=== PATIENT | female | born 1965 | race Caucasian/White ===

== ENCOUNTER 2016-04-05 17:40 | Emergency (ER) | payer OTHER ==
[~2016-04-05] VITALS: Ht 154.9 cm; Wt 81.6 kg
[~2016-04-05 17:40] MED LIST: FLEXERIL10 MG PO; MOTRIN800 MG PO; PERCOCET 325 MG1 TA2 PO; PROAIR HFA0.09 MG/Ac INH
[2016-04-05 19:06] LABS: ABSOLUTE BASOPHIL COUNT 0 /CUMM (0.0-0.2); ABSOLUTE EOSINOPHIL COUNT 0.3 /CUMM (0.0-0.7); ABSOLUTE GRANULOCYTE CT 3.6 /CUMM (1.4-6.5); ABSOLUTE LYMPH COUNT 2.9 /CUMM (1.2-3.4); ABSOLUTE MONOCYTE COUNT 0.6 /CUMM (0.10-0.60); BASOPHIL % 0.7 % (0.0-2.0); EOSINOPHIL % 4.3 % (0-5); GRANULOCYTE % 48.1 % (42.2-75.2); HEMATOCRIT 40.7 % (37-47); MEAN CORPUSCULAR HGB 29.2 PG (27.0-31.0); MEAN CORPUSCULAR HGB CONC 33.9 G/DL (33.0-37.0); MEAN CORPUSCULAR VOLUME 86.3 FL (81.0-99.0); MEAN PLATELET VOLUME 7.6 FL (7.4-10.4); PLATELET COUNT 332 /CUMM (130-400); RBC DISTRIBUTION WIDTH 12.9 % (11.5-14.5); RED BLOOD CELL CT 4.72 /CUMM (4.20-5.40); WHITE BLOOD CELL COUNT 7.4 /CUMM (4.8-10.8)
[2016-04-05] MEDS ORDERED: MONTELUKAST SOD10 M1 PO (19:23)
[2016-04-05] MEDS ORDERED: VITAMIN D2000 UNIT PO (19:24)
[2016-04-05] MEDS ORDERED: NASONEX17 GM NASB (19:24)
[2016-04-05] MEDS ORDERED: BROMPHENIR-PSE118 ML (19:24)
[2016-04-05 20:06] VITALS: BP 124/58
--- NOTE | 2016-04-05 20:16 | CT SCAN REPORT ---
EXAMINATION: CT ABDOMEN AND PELVIS WITH CONTRAST CLINICAL INFORMATION: Abdominal pain. Epigastric abdominal pain. COMPARISON: CT abdomen without contrast 04/01/2012. TECHNIQUE: Multidetector volumetric imaging was performed of the abdomen and pelvis before and after the IV administration of 95 mL of Optiray 320 intravenous contrast. Sagittal and coronal reformatted images were obtained on the technologist's workstation. DLP: 289 mGy-cm FINDINGS: LUNG BASES: The visualized lung bases are unremarkable. LIVER, GALLBLADDER, AND BILIARY TREE: The liver is normal in size, shape, and attenuation. No focal hepatic lesion or intrahepatic biliary ductal dilatation is present. The gallbladder is surgically absent. There is mild prominence of the distal common bile duct, not unexpected following cholecystectomy. No radiopaque intraductal stones are identified. PANCREAS: Unremarkable. SPLEEN: Unremarkable. ADRENAL GLANDS: Unremarkable. KIDNEYS AND URETERS: Evaluation of the bilateral kidneys and renal collecting systems is notable for a 1.1 cm nonobstructing stone within the lower pole of the left kidney, new relative to a prior CT of the abdomen and pelvis dating back to 04/01/2012. A 0.5 cm nonobstructing stone, previously visualized within the upper pole of the left kidney is no longer identified. On today's exam, there is a 0.4 cm nonobstructing stone within the upper pole of the left kidney. There is no appreciable nephrolithiasis of the right kidney. No ureteral stones are identified and there is no hydroureteronephrosis of either kidney or renal collecting system. Evaluation of the renal parenchyma demonstrates a 0.6 cm hypoattenuating structure within the midpole of the right kidney. This finding is incompletely characterized on this examination but could reflect a small renal cyst. BLADDER: Unremarkable. GASTROINTESTINAL TRACT: Evaluation of the gastrointestinal system is notable for a small bowel feces sign, with feculent material identified within loops of small bowel, notably the jejunum and ileum. Abdominal and pelvic bowel loops are otherwise normal in caliber, without findings indicative of small bowel obstruction. A normal-appearing appendix is present within the right lower quadrant of the abdomen. No organizing intra-abdominal or pelvic fluid collections are identified and there is no free intraperitoneal air. ABDOMINAL WALL: No significant hernia is appreciated. LYMPH NODES: No significant abdominal or pelvic adenopathy. VASCULAR: Patent abdominal vasculature. Normal course and caliber of the abdominal aorta and its branching vessels, without aneurysmal dilatation. PELVIC VISCERA: Unremarkable. OSSEOUS STRUCTURES: No acute osseous abnormality. Normal alignment of the imaged thoracolumbar spine. No visible destructive osseous lesions. IMPRESSION: 1. Small bowel feces sign, with feculent material identified within loops of small bowel, notably the jejunum and ileum. This finding is entirely nonspecific but can be seen in the setting of delayed intestinal transit. There is focal distention of a loop of small bowel within the left upper quadrant of the abdomen, which is visualized measuring up to 3 cm in diameter. There are otherwise, no findings indicative of small bowel obstruction. 2. Nephrolithiasis of the left kidney with a 1.1 cm nonobstructing stone identified within the lower pole of the left kidney. There is an additional nonobstructing stone within the upper pole of the left kidney measuring 0.4 cm. There is no appreciable nephrolithiasis of the right kidney. No ureteral stones are identified and there is no hydroureteronephrosis of either kidney or renal collecting system.
[2016-04-05] MEDS ORDERED: OMEPRAZOLE40 M1 PO (20:56)
[2016-04-05] MEDS ORDERED: PERCOCET 5-3251 EACH PO (20:56)
--- NOTE | 2016-04-05 20:57 | ED GI/GU/ABDOMINAL COMPLAINT ---
History of Present Illness General Chief Complaint: Abdominal Pain/Flank Pain Stated Complaint: MID EPIGASTRIC PAIN Source: patient Exam Limitations: no limitations Vital Signs & Intake/Output Vital Signs & Intake/Output Vital Signs Date Time Temp Pulse Resp B/P Pulse O2 O2 Flow FiO2 Ox Delivery Rate 04/05 2005 92 18 124/58 95 Room Air 04/05 1811 98.3 98 16 122/82 100 Room Air Allergies Coded Allergies: venom-honey bee (BEE VENOM (HONEY BEE)) (Severe, ANAPHYLAXIS 04/15/15) Triage Note: PT TO ED FOR SEVERE EPIGASTRIC ABD PAIN SINCE THIS AM, +NAUSEA, +VOMITING, POOR PO INTAKE FOR PAST DAY WELL. Triage Nurses Notes Reviewed? yes ? n Is pt currently ? No Onset: Abrupt Duration: hour(s):, constant, continues in ED Timing: recent history Quality/Severity: moderate, sharpness, severe Location: epigastric Radiation: no radiation No Modifying Factors: none HPI: 51-year-old female comes into emergency room with complaints of upper abdominal pain since this morning. Some associated nausea and 1 episode of vomiting. Decreased appetite. Denies any chest pain or shortness of breath currently. Pain is nonradiating. Denies any prior history of abdominal issues. History of cholecystectomy. Nothing seems to make the symptoms better. Eating seems to exacerbate the symptoms. decrease in bowel movements today. Denies any blood in her stool. Denies any other associated symptoms currently. (ELIE MARIE) Reconcile Medications Brompheniramine/Pseudoephed/Dm (Akyfvponuv-Ehxlmqwzmaj-Lw Syr) (Unknown Strength ) SYRUP (Unknown Dose) UNKNOWN (Reported) Cholecalciferol (Vitamin D3) (Vitamin D) 2,000 UNIT CAPSULE 1 CAP PO DAILY SUPPLEMENT (Reported) Mometasone Furoate (Nasonex) 50 MCG SPRAY.PUMP 1 SPRAY NASB BID PRN ALLERGIES (Reported) Montelukast Sodium 10 MG TABLET 1 TAB PO QHS ALLERGIES (Reported) Omeprazole 40 MG CAPSULE.DR 1 CAP PO DAILY ABD PAIN Ondansetron (Zofran Odt) 4 MG TAB.RAPDIS 1 TAB SL TID PRN NAUSEA Oxycodone HCl/Acetaminophen (Percocet 5-325 MG Tablet) 5 MG-325 MG TABLET 1-2 TAB PO Q6P PRN PAIN (DERECK CHAN) Past History Travel History Traveled to [place] past 21 day No Medical History Any Pertinent Medical History? see below for history Neurological: NONE EENT: NONE Cardiovascular: NONE Respiratory: asthma Gastrointestinal: NONE Hepatic: NONE Renal: NONE Musculoskeletal: NONE Psychiatric: NONE Endocrine: NONE Blood Disorders: NONE Cancer(s): NONE Surgical History Surgical History: cholecystectomy Psychosocial History What is your primary language Qatari Tobacco Use: Current Daily Use Daily Tobacco Use Amount/Type: => 5 Cigarettes daily ETOH Use: occasional use Illicit Drug Use: denies illicit drug use Family History Hx Contributory? No (ELIE MARIE) Review of Systems Review of Systems Constitutional: Reports: no symptoms. EENTM: Reports: no symptoms. Respiratory: Reports: no symptoms. Cardiovascular: Reports: no symptoms. GI: Reports: see HPI. Genitourinary: Reports: no symptoms. Musculoskeletal: Reports: no symptoms. Skin: Reports: no symptoms. Neurological/Psychological: Reports: no symptoms. Hematologic/Endocrine: Reports: no symptoms. Immunologic/Allergic: Reports: no symptoms. All Other Systems: Reviewed and Negative (ELIE MARIE) Physical Exam Physical Exam General Appearance: well developed/nourished, no apparent distress, alert, awake Head: atraumatic, normal appearance Eyes: Bilateral: normal appearance. Ears, Nose, Throat, Mouth: hearing grossly normal, moist mucous membrane Neck: normal inspection, full range of motion Respiratory: normal breath sounds, no respiratory distress Cardiovascular: regular rate/rhythm Gastrointestinal: soft, tenderness (epigastric), no guarding, no rebound tenderness Back: normal inspection Extremities: normal range of motion Neurologic/Psych: awake, alert, oriented x 3, normal gait, normal mood/affect Skin: intact, normal color Core Measures ACS in differential dx? Yes Severe Sepsis Present: No Septic Shock Present: No (ELIE MARIE) Progress Differential Diagnosis: AAA, AMI, appendicitis, biliary colic, bowel obstruction , cholecystitis, diverticulitis, esophageal varices, gastritis, hepatitis, hernia, kidney stone, ovarian cyst, ovarian torsion, pancreatitis, PID/ cervicitis, peptic ulcer, PUD/GERD, perforated viscous, SBO, threatened AB, UTI/ pyelo Plan of Care: Orders Procedure Date/time Status TROPONIN LEVEL 04/05 1812 Complete URINALYSIS 04/05 1809 Complete LIPASE 02/20 1810 Complete COMPREHENSIVE METABOLIC PANEL 04/05 1809 Complete CBC WITHOUT DIFFERENTIAL 04/05 1809 Complete AMYLASE 04/05 1809 Complete EKG 04/05 1809 Active Laboratory Tests 04/05/161929: Urine Color YEL, Urine Clarity HAZY H, Urine pH 6.0, Ur Specific [place] 1.025, Urine Protein TRACE H, Urine Ketones 15 H, Urine Nitrite NEG, Urine Bilirubin NEG, Urine Urobilinogen 0.2, Ur Leukocyte Esterase TRACE H, Ur Microscopic SEDIMENT EXAMINED, Urine RBC >75 H, Urine WBC 3-5 H, Ur Epithelial Cells MANY H, Hyaline Casts RARE H, Urine Mucus MANY H, Urine Hemoglobin LARGE H, Urine Glucose NEG 04/05/161830: Troponin I Cancelled 04/05/161812: Anion Gap 10, Estimated GFR 59 L, BUN/Creatinine Ratio 18.0, Glucose 97, Calcium 9.5, Total Bilirubin 0.5, AST 19, ALT 40, Alkaline Phosphatase 89, Troponin I < 0.01, Total Protein 7.2, Albumin 4.1, Globulin 3.1, Albumin/ Globulin Ratio 1.3, Amylase < 30 L, Lipase 35, CBC w Diff NO MAN DIFF REQ, RBC 4.72, MCV 86.3, MCH 29.2, RDW 12.9, MPV 7.6, Gran % 48.1, Lymphocytes % 38.6, Monocytes % 8.3, Eosinophils % 4.3, Basophils % 0.7, Absolute Granulocytes 3.6, Absolute Lymphocytes 2.9, Absolute Monocytes 0.6, Absolute Eosinophils 0.3, Absolute Basophils 0, PUBS MCHC 33.9 04/05/2016 11:25:03 PM I spoke with the patient over the phone after she called requesting a medication for nausea. The patient states that she attempted to eat and immediately began to vomit. She has not taken anything for her pain and she has not gotten the Percocet or omeprazole that was previously prescribed to her earlier today. Discussed her that she should get these filled, prescription for Zofran was called into her pharmacy at her request. I went over again all her CAT scan and lab results with her, and I stressed to her that she should come back to the emergency room to be evaluated once again. The patient states that she will try this first and if they persist she will come back. (DERECK CHAN) Diagnostic Imaging: Viewed by Me: CT Scan. Discussed w/RAD: CT Scan. Radiology Impression: SERVICE DATE: 04/05/16 EXAM TYPE: CAT - CT ABD & PELVIS W IV CONTRAST EXAMINATION: CT ABDOMEN AND PELVIS WITH CONTRAST CLINICAL INFORMATION: Abdominal pain. Epigastric abdominal pain. COMPARISON: CT abdomen without contrast 04/01/2012. TECHNIQUE: Multidetector volumetric imaging was performed of the abdomen and pelvis before and after the IV administration of 95 mL of Optiray 320 intravenous contrast. Sagittal and coronal reformatted images were obtained on the technologist's workstation. DLP: 289 mGy-cm FINDINGS: LUNG BASES: The visualized lung bases are unremarkable. LIVER, GALLBLADDER, AND BILIARY TREE: The liver is normal in size, shape, and attenuation. No focal hepatic lesion or intrahepatic biliary ductal dilatation is present. The gallbladder is surgically absent. There is mild prominence of the distal common bile duct, not unexpected following cholecystectomy. No radiopaque intraductal stones are identified. PANCREAS: Unremarkable. SPLEEN: Unremarkable. ADRENAL GLANDS: Unremarkable. KIDNEYS AND URETERS: Evaluation of the bilateral kidneys and renal collecting systems is notable for a 1.1 cm nonobstructing stone within the lower pole of the left kidney, new relative to a prior CT of the abdomen and pelvis dating back to 04/01/2012. A 0.5 cm nonobstructing stone, previously visualized within the upper pole of the left kidney is no longer identified. On today's exam, there is a 0.4 cm nonobstructing stone within the upper pole of the left kidney. There is no appreciable nephrolithiasis of the right kidney. No ureteral stones are identified and there is no hydroureteronephrosis of either kidney or renal collecting system. Evaluation of the renal parenchyma demonstrates a 0.6 cm hypoattenuating structure within the midpole of the right kidney. This finding is incompletely characterized on this examination but could reflect a small renal cyst. BLADDER: Unremarkable. GASTROINTESTINAL TRACT: Evaluation of the gastrointestinal system is notable for a small bowel feces sign, with feculent material identified within loops of small bowel, notably the jejunum and ileum. Abdominal and pelvic bowel loops are otherwise normal in caliber, without findings indicative of small bowel obstruction. A normal- appearing appendix is present within the right lower quadrant of the abdomen. No organizing intra-abdominal or pelvic fluid collections are identified and there is no free intraperitoneal air. ABDOMINAL WALL: No significant hernia is appreciated. LYMPH NODES: No significant abdominal or pelvic adenopathy. VASCULAR: Patent abdominal vasculature. Normal course and caliber of the abdominal aorta and its branching vessels, without aneurysmal dilatation. PELVIC VISCERA: Unremarkable. OSSEOUS STRUCTURES: No acute osseous abnormality. Normal alignment of the imaged thoracolumbar spine. No visible destructive osseous lesions. IMPRESSION: 1. Small bowel feces sign, with feculent material identified within loops of small bowel, notably the jejunum and ileum. This finding is entirely nonspecific but can be seen in the setting of delayed intestinal transit. There is focal distention of a loop of small bowel within the left upper quadrant of the abdomen, which is visualized measuring up to 3 cm in diameter. There are otherwise, no findings indicative of small bowel obstruction. 2. Nephrolithiasis of the left kidney with a 1.1 cm nonobstructing stone identified within the lower pole of the left kidney. There is an additional nonobstructing stone within the upper pole of the left kidney measuring 0.4 cm. There is no appreciable nephrolithiasis of the right kidney. No ureteral stones are identified and there is no hydroureteronephrosis of either kidney or renal collecting system. DICTATED BY: RUTH WYMAN MD DATE/ TIME DICTATED:04/05/161951 CONCAVER:ROSANNE DATE/TIME TRANSCRIBED: 04/05/161951 Initial ED EKG: normal intervals, normal p-waves, normal QRS complex, normal sinus rhythm, rate (82) (MARKUS BRADY,ELIE) Departure Departure Disposition: HOME OR SELF CARE Condition: Stable Clinical Impression Primary Impression: Abdominal pain Referrals: YESENIA LUIS,JULIA CURRAN APRN (PCP/Family) Additional Instructions: Take Percocet for pain. Follow-up with GI doctor. Take omeprazole as prescribed. Return if any other concerns worsening symptoms. Please go over all results of today's visit with your primary care doctor. Contact your primary care doctor to let them know you were here in the emergency room. There may be nonspecific findings which may not be related to your visit today here in the emergency room but may require further evaluation and chronic monitoring by your primary care doctor. If you had a laceration today the chance of foreign body always remains. You should follow-up with your primary care doctor for recheck in 3-5 days for a wound check. If you had an x-ray done there is a chance that a fracture could have been missed on initial read and you should follow-up with your primary care doctor for repeat x-rays if symptoms persist. If your blood pressure was elevated here in the emergency room please have rechecked by her primary care doctor within the next 48 hours by your primary care doctor. If you were prescribed a narcotic here in the emergency room or any type of controlled substances you're not allowed to drive while taking this medication or operate any type of heavy machinery. Narcotics can make you feel lightheaded dizziness nausea and can cause constipation. You may need to greens picker a stool softener. Thank you for choosing [facility] emergency room. Please return to the emergency room immediately if you have any other concerns worsening of symptoms. Departure Forms: Customer Survey General Discharge Information Comments Patient clinically looks well. Nontoxic-appearing. No acute abdomen on exam. Feels better after IV medications. Patient was referred to gastroenterology for upper endoscopy and possibly a gastric emptying study. She does not appear to be in any distress on exam. Pain is consistent with abdominal pain versus chest pain. EKG within normal limits and a normal troponin. (ELIE MARIE) Departure Prescriptions: Current Visit Scripts Oxycodone HCl/Acetaminophen (Percocet 5-325 MG Tablet) 1-2 TAB PO Q6P PRN PAIN #15 TAB Omeprazole 1 CAP PO DAILY #30 CAP Ondansetron (Zofran Odt) 1 TAB SL TID PRN NAUSEA #10 TAB (DERECK CHAN)
[2016-04-05] MEDS ORDERED: ZOFRAN ODT4 M1 SL (23:24)
== END 2016-04-05 21:11 ==
LOC: ERH 17:40
PROVIDERS: Emergency Medicine
DX: R10.13 Epigastric pain (principal)
CPT/HCPCS: 74177; 81001; 93005; 93010; 96374; 96375; J2405

== ENCOUNTER → 2016-05-14 | Day surgery (SDC) | payer OTHER ==
[~2016-05-14] VITALS: Ht 154.9 cm; Wt 81.6 kg
[~2016-05-14] MED LIST changes: +BACITRACIN3.5 GM OD; +BROMPHENIR-PSE118 ML; +CIPRO500 M1 PO; +DILAUDID2 M1 PO; +FLUTICASONE PRO16 GM NASB; +KEFLEX500 M1 PO; +MONTELUKAST SOD10 M1 PO; +NASONEX17 GM NASB; +OMEPRAZOLE40 M1 PO; +OXYCODONE-ACET1 EACH PO; +PERCOCET 5-3251 EACH PO; +SIMBRINZA 1%-0.28 ML OD; +TRIMETHOBENZAM300 MG PO; +VITAMIN D2000 UNIT PO; +ZOFRAN ODT4 M1 SL
--- NOTE | 2016-05-14 15:13 | Operative Report ---
Operative/Inv Procedure Report Surgery Date: 05/14/16 Name of Procedure: left ureteroscopy with laserlithotripsy and stent placement wtih stones removal and retrograde pyelogram Pre-Operative Diagnosis: left renal stones Post-Operative Diagnosis: same Estimated Blood Loss: less than 50ml Surgeon/Water Pollution Control Technician: AFRICA BOLANOS MD Anesthesia: laryngeal mask airway Implants: stent Drains: stent 6x22cm stent Specimens: stones Complications: none Condition: stable Operative Indication: left renal stones with renal colic Operative/Procedure Note Note: Operative dictation on patient Sarah Cantu. She was identified in the holding area and consented for a left ureteroscopy with laser lithotripsy with stone extraction and retrograde pyelogram and stent placement. Risks benefits and alternatives of the surgery were given and all questions were answered. Patient was taken to the operating room placed on the operating table in supine position. Once timeout was performed SCDs were placed bilaterally. IV antibiotics were infused and LMA anesthesia was given. She was prepped and draped in the standard sterile fashion in dorsal lithotomy position. cystoscopy was performed and the bladder was globally inspected. The bladder was normal without any lesions masses or trabeculation. Ureteral orifices in their normal anatomical position. The left ureteral orifice was cannulated with a sensor guidewire followed by her superstiff using the Coloplast ureteral access sheath. 35 cm ureteral access sheath was used. The flexible ureteroscope was placed up into the renal pelvis and prior to doing so a prescription was performed to delineate the renal anatomy. The stone was known to be in the lower pole 1.1 cm in size and this was attempted to be placed in the upper pole but it was a unable to be done. The upper pole stone was first lasered with the 400 fiber into smaller sizes. The lower pole was attempted to be fragmented with the 400 Once this was done the 0 tip basket was then used and for multiple fragments were removed via the ureteral access sheath. These were sent off for stone analysis. Once all the large size stones were removed the area was completely inspected again. Fluoroscopy was used throughout the case. There were no remaining sizable stones. The ureteroscope was then removed along with the sheath in the ureter was examined on the way out. There were no injuries. The remaining wire was then used to place a 6 x 22 cm ureteral stent. This was done with the cystoscopy. The stent was seen to be in good position. She tolerated the procedure well. Findings: large LP stone 1.1cm in size brown in color. 4mm stone in the UP that was yellow in color. Discharge Disposition: PACU
--- NOTE | 2016-05-14 16:59 | RADIOLOGY REPORT ---
EXAMINATION: XR ABDOMEN CLINICAL INDICATION: Left ureteroscopy. Retrograde lithotripsy. COMPARISON: A scan of the abdomen and pelvis dated 04/05/2016. TECHNIQUE: Fluoroscopic equipment was dedicated to the operating room for the performance of a left ureteroscopy and retrograde lithotripsy. 24 images were obtained and are submitted for review. FLUOROSCOPY TIME: 37 seconds. FINDINGS: The images demonstrate different stages of advancement of the guidewire and stent. Final image demonstrates a left double-J ureteral stent in place with proximal and distal pigtails in region of the renal pelvis and ureter. No definite radiopaque calculi appreciated. IMPRESSION: Left ureteral stent placement.
== END ==
LOC: STS 04-30 07:00
DX: N20.0 Calculus of kidney (principal); E78.5 Hyperlipidemia, unspecified; J44.9 Chronic obstructive pulmonary disease, unspecified
CPT/HCPCS: 74000; 82355; C2617; J0131; J0690; J1100; J1885; J2250; J2405

== ENCOUNTER 2016-05-16 17:31 | Emergency (ER) | payer OTHER ==
[~2016-05-16] VITALS: Ht 154.9 cm; Wt 74.4 kg
[~2016-05-16 17:31] MED LIST changes: -BACITRACIN3.5 GM OD; -CIPRO500 M1 PO; -DILAUDID2 M1 PO; -FLUTICASONE PRO16 GM NASB; -KEFLEX500 M1 PO; -OXYCODONE-ACET1 EACH PO; -SIMBRINZA 1%-0.28 ML OD; -TRIMETHOBENZAM300 MG PO
[2016-05-16] MEDS ORDERED: OXYCODONE-ACET1 EACH PO (18:26)
[2016-05-16] MEDS ORDERED: KEFLEX500 M1 PO (18:26)
[2016-05-16] MEDS ORDERED: BACITRACIN3.5 GM OD (18:27)
[2016-05-16] MEDS ORDERED: FLUTICASONE PRO16 GM NASB (18:27)
[2016-05-16] MEDS ORDERED: TRIMETHOBENZAM300 MG PO (18:28)
[2016-05-16] MEDS ORDERED: SIMBRINZA 1%-0.28 ML OD (18:28)
[2016-05-16 18:56] LABS: ABSOLUTE BASOPHIL COUNT 0.1 /CUMM (0.0-0.2); ABSOLUTE EOSINOPHIL COUNT 0.2 /CUMM (0.0-0.7); ABSOLUTE GRANULOCYTE CT 6.9 /CUMM (1.4-6.5); ABSOLUTE LYMPH COUNT 3.1 /CUMM (1.2-3.4); ABSOLUTE MONOCYTE COUNT 0.7 /CUMM (0.10-0.60); BASOPHIL % 0.5 % (0.0-2.0); EOSINOPHIL % 1.7 % (0-5); GRANULOCYTE % 62.7 % (42.2-75.2); HEMATOCRIT 39.8 % (37-47); MEAN CORPUSCULAR HGB 28.7 PG (27.0-31.0); MEAN CORPUSCULAR HGB CONC 33.3 G/DL (33.0-37.0); MEAN CORPUSCULAR VOLUME 86.2 FL (81.0-99.0); MEAN PLATELET VOLUME 7.6 FL (7.4-10.4); PLATELET COUNT 339 /CUMM (130-400); RBC DISTRIBUTION WIDTH 13.4 % (11.5-14.5); RED BLOOD CELL CT 4.62 /CUMM (4.20-5.40)
--- NOTE | 2016-05-16 20:14 | ED GI/GU/ABDOMINAL COMPLAINT ---
History of Present Illness General Chief Complaint: Abdominal Pain/Flank Pain Stated Complaint: KIDNEY STONE SURGERY FRI, HAVING SEVERE PAIN Source: patient Exam Limitations: no limitations Allergies Coded Allergies: venom-honey bee (BEE VENOM (HONEY BEE)) (Severe, ANAPHYLAXIS 04/15/15) Triage Note: PT STATES SHE HAD KIDNEY STONE SURGERY WITH DR. CADENA ON TUESDAY AND TODAY SHE IS HAVING SEVERE LEFT SIDED FLANK PAIN. PT STATES TODAY SHE CAN'T GET A NORMAL FLOW OF URINE. Triage Nurses Notes Reviewed? yes ? N Is pt currently ? No HPI: This patient is a 51-year-old female who presented to the emergency department today for evaluation of right flank pain and right groin pain. This patient had a stent placed for ureterolithiasis on Tuesday by Dr. CADENA. She reported that Tuesday and Tuesday after the surgery she felt fine. However, on Tuesday she started to develop left flank pain and pain with urination. She reported that right now the pain is primarily in her right groin. The pain gets up to a 10 out of 10 when she urinates. The pain is sharp and stabbing. She reported noticing blood in her urine. She reported urgency and frequency. The patient denied any diarrhea or constipation. No abdominal pain. She did report nausea and vomiting once today. No fevers but she is reporting chills. She spoke to her urologist today who suggested that she come to the emergency department for imaging. (ISIDRO NAPIER,WINNIE) Vital Signs & Intake/Output Vital Signs & Intake/Output Vital Signs Date Time Temp Pulse Resp B/P Pulse O2 O2 Flow FiO2 Ox Delivery Rate 05/16 2111 98.0 83 16 117/66 98 Room Air 05/16 1849 Room Air 05/16 1734 97.5 120 16 107/74 96 Room Air ED Intake and Output 05/17 0000 05/16 1200 Intake Total 1000 Output Total Balance 1000 Intake, IV 1000 Patient 164 lb Weight Reconcile Medications Bacitracin 500 UNIT/GRAM OINT...G. 1 JAXSON OD Q8H RIGHT EYE (Reported) Brinzolamide/Brimonidine Tart (Simbrinza 1%-0.2% Eye Drops) 1 %-0.2 % DROPS.SUSP 1 DROP OD Q12H RIGHT EYE - GLAUCOMA (Reported) Cephalexin (Keflex) 500 MG CAPSULE 1 CAP PO Q8H ANTIBIOTIC (Reported) Cholecalciferol (Vitamin D3) (Vitamin D) 2,000 UNIT CAPSULE 1 CAP PO DAILY SUPPLEMENT (Reported) Ciprofloxacin HCl (Cipro) 500 MG TABLET 1 TAB PO BID UTI Fluticasone Propionate 50 MCG/ACTUATION SPRAY.SUSP 1 SPRAY NASB BID NASAL CONGESTION (Reported) Montelukast Sodium 10 MG TABLET 1 TAB PO QHS ALLERGIES (Reported) Omeprazole 40 MG CAPSULE.DR 1 CAP PO DAILY ABD PAIN Oxycodone HCl/Acetaminophen (Oxycodone-Acetaminophen 5-325) 5 MG-325 MG TABLET 1-2 TAB PO Q4-6H PRN PAIN (Reported) Trimethobenzamide HCl 300 MG CAPSULE 1 CAP PO DAILY PRN NAUSEA (Reported) (CASEY LUIS,YVONNE Rothman) Past History Travel History Traveled to [place] past 21 day No Medical History Any Pertinent Medical History? see below for history Neurological: NONE EENT: NONE Cardiovascular: NONE Respiratory: asthma Gastrointestinal: NONE Hepatic: NONE Renal: KIDNEY STONES Musculoskeletal: NONE Psychiatric: NONE Endocrine: NONE Blood Disorders: NONE Cancer(s): NONE Surgical History Surgical History: cholecystectomy Psychosocial History What is your primary language [place] Tobacco Use: Current Daily Use Daily Tobacco Use Amount/Type: => 5 Cigarettes daily ETOH Use: occasional use Illicit Drug Use: denies illicit drug use Family History Hx Contributory? No (WINNIE FELIX PA-C) Review of Systems Review of Systems Constitutional: Reports: see HPI. EENTM: Reports: no symptoms. Respiratory: Reports: no symptoms. Cardiovascular: Reports: no symptoms. GI: Reports: see HPI. Genitourinary: Reports: see HPI. Musculoskeletal: Reports: see HPI. Skin: Reports: no symptoms. Neurological/Psychological: Reports: no symptoms. All Other Systems: Reviewed and Negative (WINNIE FELIX PA-C) Physical Exam Physical Exam Gastrointestinal: normal bowel sounds, soft, no organomegaly, TENDERNESS TO PALPATION IN THE RIGHT GROIN REGION. nO REBOUND OR GUARDING. nO mCbURNEY'S POINT TENDERNESS. nEGATIVE Jones SIGN.NO PERITONEAL SIGNS. Comments: Well-developed well-nourished person in moderate distress HEENT: Normal EENT exam, head normocephalic, moist mucous membranes Neck: Supple with no lymphadenopathy Back: Right-sided CVA tenderness. No midline tenderness. Cardiovascular: Regular rate and rhythm with no murmurs, rubs, or gallops Respiratory: No respiratory distress. Breath sounds clear to auscultation bilaterally with no wheezes, rales, or rhonchi Extremity: Normal and equal pulses Neuro: Alert oriented x3, cranial nerves II through XII grossly intact. Skin: No appreciable rash on exposed skin, skin is warm and dry. Psych: Mood and affect is normal Core Measures ACS in differential dx? No Severe Sepsis Present: No Septic Shock Present: No (ISIDRO NAPIER,WINNIE) Progress Differential Diagnosis: appendicitis, biliary colic, bowel obstruction, colon cancer, cholecystitis, diverticulitis, ischemic bowel, inflamm bowel dis, kidney stone, PID/cervicitis, perforated viscous, UTI/pyelo Diagnostic Imaging: Viewed by Me: CT Scan. Discussed w/RAD: CT Scan. Radiology Impression: PATIENT: CASSIUS ALEXANDER PRESENT AGE : 51 PATIENT ACCOUNT NO: [id number] : 67 LOCATION: [facility] ORDERING PHYSICIAN: WINNIE FELIX PA-C SERVICE DATE: 05/16/16 EXAM TYPE: CAT - CT ABD & PELVIS W/O IV CONTRAS EXAMINATION: CT ABDOMEN AND PELVIS WITHOUT CONTRAST CLINICAL INFORMATION: Flank pain. COMPARISON: CT abdomen and pelvis . TECHNIQUE: Multidetector volumetric imaging was performed from the superior aspect of the liver through the pubic symphysis. Sagittal and coronal reformatted images were obtained on the technologist's workstation. DLP: 425 mGy -cm. FINDINGS: LUNG BASES: Mild dependent parenchymal changes. No pleural effusion. LIVER, GALLBLADDER, AND BILIARY TREE: The liver is normal in size, shape, and attenuation. No focal hepatic lesion . Cholecystectomy clips noted. Mild biliary ductal prominence is a nonspecific finding status post cholecystectomy and is unchanged from prior exam. PANCREAS: Unremarkable. SPLEEN : Unremarkable. ADRENAL GLANDS: Slight fullness of the left adrenal gland is unchanged. KIDNEYS AND URETERS: Left ureteral stent is in place. The ureteral stent terminates in the region of the left ureterovesicular junction. There is mild left perinephric stranding. No significant left-sided hydronephrosis. Multiple tiny residual left renal calculi are noted, the largest measuring 0.3 cm in diameter. There is a 0.1 cm right mid renal calculus. No hydronephrosis. BLADDER: No bladder calculus. GASTROINTESTINAL TRACT: Bowel gas pattern is nonobstructive. No evidence of acute bowel inflammation. The appendix is normal. ABDOMINAL WALL: No significant hernia is appreciated. LYMPH NODES: Normal. VASCULAR: Unremarkable. PELVIC VISCERA: No free pelvic fluid. The uterus is anteverted. No suspicious adnexal mass. OSSEOUS STRUCTURES: No acute osseous abnormalities. IMPRESSION: 1. Left-sided ureteral stent in place. The left ureteral stent terminates in the region of the left ureterovesicular junction. Mild left periureteric stranding. No significant hydroureteronephrosis. Tiny punctate left renal calculi measuring up to 0.3 cm. 2. A 0.1 cm right renal calculus. No hydronephrosis. 3. Status post cholecystectomy. DICTATED BY: ANJEL SCHAEFER MD DATE/TIME DICTATED:05/16/162006 SCRUM PRODUCT OWNER:ROSANNE DATE/ TIME TRANSCRIBED:05/16/162006 CONFIDENTIAL, DO NOT COPY WITHOUT APPROPRIATE AUTHORIZATION. <Electronically signed in Other Vendor System> SIGNED BY: ANJEL SCHAEFER MD 05/16/162027 Initial ED EKG: none Comments: 05/16/2016 9:05:30 PM: Discussed this patient with on-call urologist, Dr. Cadena. She reported that this patient can be discharged home with an outpatient antibiotic and follow-up in the office. (ISIDRO NAPIER,WINNIE) Plan of Care: Orders Procedure Date/time Status CULTURE,URINE 05/16 1826 Active COMPREHENSIVE METABOLIC PANEL 05/16 1826 Complete CBC WITHOUT DIFFERENTIAL 05/16 1826 Complete URINALYSIS 05/16 1746 Complete Laboratory Tests 05/16/16 1940: Urine Color KYA, Urine Clarity CLDY H, Urine pH 6.5, Ur Specific [place] 1.020, Urine Protein >=300 H, Urine Ketones TRACE H, Urine Nitrite POS H, Urine Bilirubin NEG@ICTO, Urine Urobilinogen 1.0, Ur Leukocyte Esterase LARGE H , Ur Microscopic SEDIMENT EXAMINED, Urine RBC >75 H, Urine WBC 15-25 H, Urine Bacteria FEW H, Hyaline Casts RARE H, Urine Hemoglobin LARGE H, Urine Glucose NEG 05/16/16 1843: Anion Gap 12, Estimated GFR 59 L, BUN/Creatinine Ratio 13.0, Glucose 93, Calcium 9.9, Total Bilirubin 0.7, AST 19, ALT 59 H, Alkaline Phosphatase 93, Total Protein 7.2, Albumin 4.4, Globulin 2.8, Albumin/Globulin Ratio 1.6, CBC w Diff NO MAN DIFF REQ, RBC 4.62, MCV 86.2, MCH 28.7, RDW 13.4, MPV 7.6, Gran % 62.7, Lymphocytes % 28.6, Monocytes % 6.5, Eosinophils % 1.7, Basophils % 0.5, Absolute Granulocytes 6.9 H, Absolute Lymphocytes 3.1, Absolute Monocytes 0.7 H, Absolute Eosinophils 0.2, Absolute Basophils 0.1, PUBS MCHC 33.3 Microbiology 05/17 1939 URINE ROUT: Urine Culture - RES Departure Departure Disposition: HOME OR SELF CARE Condition: Stable Clinical Impression Primary Impression: Urinary tract infection Qualifiers: Urinary tract infection type: site unspecified Hematuria presence: with hematuria Qualified Codes: N39.0 - Urinary tract infection, site not specified; R31.9 - Hematuria, unspecified Referrals: JULIA MCLAUGHLIN APRN (PCP/Family) Additional Instructions: Take antibiotic as prescribed and for the full duration. Please follow-up with your urologist. Return for any worsening symptoms or concerns. Departure Forms: Customer Survey General Discharge Information Prescriptions: Current Visit Scripts Ciprofloxacin HCl (Cipro) 1 TAB PO BID #14 TAB (WINNIE FELIX PA-C) PA/MECHANICAL ASSEMBLY TECHNICIAN Co-Sign Statement Statement: ED Attending supervision documentation- [] I saw and evaluated the patient. I have also reviewed all the pertinent lab results and diagnostic results. I agree with the findings and the plan of care as documented in the PA's/MECHANICAL ASSEMBLY TECHNICIAN's documentation. [x] I have reviewed the ED Record and agree with the PA's/MECHANICAL ASSEMBLY TECHNICIAN's documentation. [] Additions or exceptions (if any) to the PAs/MECHANICAL ASSEMBLY TECHNICIAN's note and plan are summarized below: [] (CASEY LUIS,YVONNE Rothman)
--- NOTE | 2016-05-16 20:28 | CT SCAN REPORT ---
EXAMINATION: CT ABDOMEN AND PELVIS WITHOUT CONTRAST CLINICAL INFORMATION: Flank pain. COMPARISON: CT abdomen and pelvis 04/05/2016. TECHNIQUE: Multidetector volumetric imaging was performed from the superior aspect of the liver through the pubic symphysis. Sagittal and coronal reformatted images were obtained on the technologist's workstation. DLP: 425 mGy-cm. FINDINGS: LUNG BASES: Mild dependent parenchymal changes. No pleural effusion. LIVER, GALLBLADDER, AND BILIARY TREE: The liver is normal in size, shape, and attenuation. No focal hepatic lesion . Cholecystectomy clips noted. Mild biliary ductal prominence is a nonspecific finding status post cholecystectomy and is unchanged from prior exam. PANCREAS: Unremarkable. SPLEEN: Unremarkable. ADRENAL GLANDS: Slight fullness of the left adrenal gland is unchanged. KIDNEYS AND URETERS: Left ureteral stent is in place. The ureteral stent terminates in the region of the left ureterovesicular junction. There is mild left perinephric stranding. No significant left-sided hydronephrosis. Multiple tiny residual left renal calculi are noted, the largest measuring 0.3 cm in diameter. There is a 0.1 cm right mid renal calculus. No hydronephrosis. BLADDER: No bladder calculus. GASTROINTESTINAL TRACT: Bowel gas pattern is nonobstructive. No evidence of acute bowel inflammation. The appendix is normal. ABDOMINAL WALL: No significant hernia is appreciated. LYMPH NODES: Normal. VASCULAR: Unremarkable. PELVIC VISCERA: No free pelvic fluid. The uterus is anteverted. No suspicious adnexal mass. OSSEOUS STRUCTURES: No acute osseous abnormalities. IMPRESSION: 1. Left-sided ureteral stent in place. The left ureteral stent terminates in the region of the left ureterovesicular junction. Mild left periureteric stranding. No significant hydroureteronephrosis. Tiny punctate left renal calculi measuring up to 0.3 cm. 2. A 0.1 cm right renal calculus. No hydronephrosis. 3. Status post cholecystectomy.
[2016-05-16] MEDS ORDERED: CIPRO500 M1 PO (21:06)
[2016-05-16 21:11] VITALS: BP 117/66
== END 2016-05-16 21:13 ==
LOC: ERH 17:31
PROVIDERS: Physician Assistant
DX: N39.0 Urinary tract infection, site not specified (principal)
CPT/HCPCS: 74176; 81001; 87086; 96374; 96375; J1885

== ENCOUNTER 2016-05-18 14:06 | Emergency (ER) | payer OTHER ==
[~2016-05-18 14:06] MED LIST changes: +BACITRACIN3.5 GM OD; +CIPRO500 M1 PO; +FLUTICASONE PRO16 GM NASB; +KEFLEX500 M1 PO; +OXYCODONE-ACET1 EACH PO; +SIMBRINZA 1%-0.28 ML OD; +TRIMETHOBENZAM300 MG PO
--- NOTE | 2016-05-18 14:26 | ED GI/GU/ABDOMINAL COMPLAINT ---
History of Present Illness General Chief Complaint: Nausea, Vomiting, Diarrhea Stated Complaint: +N +V ABD PAIN S/P STENT REMOVAL Source: patient, family, old records Exam Limitations: no limitations Vital Signs & Intake/Output Vital Signs & Intake/Output Vital Signs Date Time Temp Pulse Resp B/P Pulse O2 O2 Flow FiO2 Ox Delivery Rate 05/18 1815 98.6 85 18 136/78 96 Room Air 05/18 1557 98.0 85 20 148/84 95 Room Air 05/18 1412 96.5 96 16 97 Room Air Allergies Coded Allergies: venom-honey bee (BEE VENOM (HONEY BEE)) (Severe, ANAPHYLAXIS 04/15/15) Reconcile Medications Bacitracin 500 UNIT/GRAM OINT...G. 1 JAXSON OD Q8H RIGHT EYE (Reported) Brinzolamide/Brimonidine Tart (Simbrinza 1%-0.2% Eye Drops) 1 %-0.2 % DROPS.SUSP 1 DROP OD Q12H RIGHT EYE - GLAUCOMA (Reported) Cephalexin (Keflex) 500 MG CAPSULE 1 CAP PO Q8H ANTIBIOTIC (Reported) Cholecalciferol (Vitamin D3) (Vitamin D) 2,000 UNIT CAPSULE 1 CAP PO DAILY SUPPLEMENT (Reported) Ciprofloxacin HCl (Cipro) 500 MG TABLET 1 TAB PO BID UTI Fluticasone Propionate 50 MCG/ACTUATION SPRAY.SUSP 1 SPRAY NASB BID NASAL CONGESTION (Reported) Hydromorphone HCl (Dilaudid) 2 MG TABLET 1 TAB PO BIDP PRN pain Montelukast Sodium 10 MG TABLET 1 TAB PO QHS ALLERGIES (Reported) Omeprazole 40 MG CAPSULE.DR 1 CAP PO DAILY ABD PAIN Ondansetron (Zofran Odt) 4 MG TAB.RAPDIS 1 TAB SL TID PRN nausea Oxycodone HCl/Acetaminophen (Oxycodone-Acetaminophen 5-325) 5 MG-325 MG TABLET 1-2 TAB PO Q4-6H PRN PAIN (Reported) Trimethobenzamide HCl 300 MG CAPSULE 1 CAP PO DAILY PRN NAUSEA (Reported) Triage Note: TRIAGE; PT TO ED C/O LT LOWER BACK PAIN. WAS HERE YESTERDAY AND TOLD IT WAS A UTI. WENT TO DR PATEL OFFICE AFTER AND TOLD IT WAS HER KIDNEY STENT AND HAD IT REMOVED. STATES PAINFUL EVER SINCE. PT STATES HAS BEEN ABLE TO URINATE SINCE. STATES UNABLE TO HOLD ANYTHING DOWN. +N/V IN TRIAGE. Triage Nurses Notes Reviewed? yes ? n Is pt currently ? No Onset: Abrupt Duration: hour(s): (2), constant Timing: recent history Quality/Severity: aching, moderate, sharpness, severe, stabbing, throbbing Severity Numbers: 10 Location: left flank Radiation: groin No Modifying Factors: none Associated Symptoms: denies HPI: 51-year-old female presents emergency room complaining of severe throbbing 10 out of 10 left flank left lower quadrant abdominal pain since this morning after she had her ureteral stent removed. Patient was seen here in this ER 2 days ago for similar pain and was prescribed Cipro. She saw her urologist this morning who removed the stent it as the patient's pain and she states since then she's had multiple episodes of nausea vomiting and worsening pain unable to tolerate by mouth. On arrival patient is tearful and anxious. She denies fever chills difficulty urinating. No other abdominal pain diarrhea black or bloody stools (DERECK CHAN) Past History Travel History Traveled to [place] past 21 day No Medical History Any Pertinent Medical History? see below for history Neurological: NONE EENT: NONE Cardiovascular: NONE Respiratory: asthma Gastrointestinal: NONE Hepatic: NONE Renal: KIDNEY STONES Musculoskeletal: NONE Psychiatric: NONE Endocrine: NONE Blood Disorders: NONE Cancer(s): NONE Surgical History Surgical History: cholecystectomy Psychosocial History What is your primary language Micronesian Tobacco Use: Never used Family History Hx Contributory? No (DERECK CHAN) Review of Systems Review of Systems Constitutional: Reports: see HPI. All Other Systems: Reviewed and Negative Comments Review of systems: See HPI, All other systems negative. Constitutional, no chills no fever, no malaise HEENT: No visual changes no sore throat no congestion Cardiovascular: No chest pain , no palpitation Skin, no rashes, no change in skin Respiratory: No dyspnea no cough no sputum no hemoptysis GI: nausea vomiting, no diarrhea, no bloating/constipation : No dysuria No hematuria, no frequency, Muscle skeletal: No joint pain, no back pain, no neck pain, Neurologic:, no headache Psych: No stress Heme/endocrine: No bruising no bleeding Immunology: No lymphadenopathy (DERECK CHAN) Physical Exam Physical Exam General Appearance: well developed/nourished, alert, awake, anxious, mild distress Gastrointestinal: soft Comments: Anxious female in mild acute distress HEENT: Normal EENT exam; PERRL, EOMI, HEAD is atraumatic. moist mucous membranes. Neck: Supple, normal range of motion Back: Nontender, no CVA tenderness. Full range of motion Cardiovascular: Regular rate and rhythms no murmurs rubs Respiratory: No respiratory distress. Patient speaking in full complete sentences. Breath sounds clear to auscultation bilaterally: NO W/R/R Abdomen: Soft, left lower quadrant tender to palpation nondistended, no appreciable organomegaly. Normal bowel sounds. No rebound/guarding, No appreciable enlargement of the abdominal aorta, No ascites. Extremity: No edema, full range of motion of extremities Neuro: Alert oriented x3, motor sensory normal, There were no obvious focal neurologic abnormalities. Skin: No appreciable rash on exposed skin, skin is warm and dry. Psych: Mood and affect is normal, memory and judgment is normal. Core Measures ACS in differential dx? No Severe Sepsis Present: No Septic Shock Present: No (BRENDEN BRADY,DERECK) Progress Differential Diagnosis: bowel obstruction, diverticulitis, inflamm bowel dis, kidney stone, PID/cervicitis, perforated viscous, SBO, UTI/pyelo Plan of Care: Orders Procedure Date/time Status Add-on Test (ER Only) 05/18 1646 Active Saline Lock 05/18 1420 Active URINALYSIS 05/18 1420 Complete COMPREHENSIVE METABOLIC PANEL 05/18 1420 Complete CBC WITHOUT DIFFERENTIAL 05/18 1420 Complete Laboratory Tests 05/18/16 1559: Urinalysis LIGHT H, Urine Color YEL, Urine Clarity HAZY H, Urine pH 6.0, Ur Specific [place] >= 1.030, Urine Protein 100 H, Urine Ketones 15 H, Urine Nitrite NEG, Urine Bilirubin NEG, Urine Urobilinogen 0.2, Ur Leukocyte Esterase TRACE H, Ur Microscopic SEDIMENT EXAMINED, Urine RBC >75 H, Urine WBC 25-50 H , Ur Epithelial Cells FEW, Urine Bacteria MANY H, Urine Mucus FEW, Urine Hemoglobin LARGE H, Urine Glucose NEG 05/18/16 1449: Anion Gap 9, Estimated GFR > 60, BUN/Creatinine Ratio 11.1, Glucose 105 H, Calcium 9.9, Total Bilirubin 0.5, AST 22, ALT 73 H, Alkaline Phosphatase 99, Total Protein 6.7, Albumin 4.0, Globulin 2.7, Albumin/Globulin Ratio 1.5, CBC w Diff NO MAN DIFF REQ, RBC 4.45, MCV 85.8, MCH 29.4, RDW 13.1, MPV 7.4, Gran % 87.6 H, Lymphocytes % 10.2 L, Monocytes % 1.1 L, Eosinophils % 0.8, Basophils % 0.3, Absolute Granulocytes 12.7 H, Absolute Lymphocytes 1.5, Absolute Monocytes 0.2, Absolute Eosinophils 0.1, Absolute Basophils 0, PUBS MCHC 34.3 Patient may give Ativan 1 mg Dilaudid 1 mg Zofran 4 Ly grams IV ultrasound ordered recent CAT scan from 2 days ago reviewed, case discussed with Dr. loera 05/18/2016 3:58:30 PM patient back from ultrasound she has had no episodes of vomiting here resting comfortably at this time call placed to dr patel 05/18/2016 6:19:04 PM patient feeling improved. Neuroma per prescription for Dilaudid as this is helping for her pain Zofran I discussed with her however the arm in taking this medication conjunction with her Percocet and I advised her strongly not to be feel comfortable this plan I advised close follow up with Dr. Matias's return anytime sooner with any concerns (BRENDEN BRADY,DERECK) Diagnostic Imaging: Viewed by Me: Ultrasound. Discussed w/RAD: Ultrasound. Radiology Impression: PATIENT: CASSIUS ALEXANDER PRESENT AGE : 51 PATIENT ACCOUNT NO: [id number] : 69 LOCATION: [facility] ORDERING PHYSICIAN: DERECK BRADY SERVICE DATE: 05/18/16 EXAM TYPE: US - US- RENAL/KIDNEY EXAMINATION: US RETROPERITONEAL COMPLETE (RENAL) CLINICAL INFORMATION: Left flank pain. History of left stent. COMPARISON: CT 05/16/2016 TECHNIQUE: Real-time imaging of the kidneys and bladder. FINDINGS: RIGHT KIDNEY: 11.2 x 5.2 x 5.6 cm (SAG x AP x TRV). The kidney is normal in size, contour, and echogenicity. Renal cortical thickness is normal. No calculi or focal parenchymal lesions. No hydronephrosis. LEFT KIDNEY: 12.2 x 6.5 x 7.5 cm (SAG x AP x TRV). The kidney is normal in size, contour, and echogenicity. Renal cortical thickness is normal. No focal parenchymal lesions. Minimal hydronephrosis. The stent has been removed. There is an 8 mm calculus in the mid pole. BLADDER: Well-distended and normal. Bilateral ureteral jets are demonstrated. Prevoid bladder volume is 70.9 mL. IMPRESSION: Minimal left hydronephrosis following removal of the renal stent. An 8 mm calculus is identified in the left mid pole. DICTATED BY: RAHEEM CAMACHO MD DATE/TIME DICTATED:05/18/161599 FLOOR ATTENDANT:ROSANNE DATE/TIME TRANSCRIBED:1599 CONFIDENTIAL, DO NOT COPY WITHOUT APPROPRIATE AUTHORIZATION. < Electronically signed in Other Vendor System> SIGNED BY: RAHEEM CAMACHO MD 05/18/16 1608 Initial ED EKG: none (DERECK CHAN) Departure Departure Time of Disposition: 1700 Disposition: HOME OR SELF CARE Condition: Stable Clinical Impression Primary Impression: Flank pain Referrals: LUIS MIGUEL LUIS,JULIA FRASER APRN (PCP/Family) Additional Instructions: Follow-up with your urologist Dr. Patel. Zofran for nausea, dilaudid for pain. DO NOT take tihs medication and your percocet at the same time. return with any concerns. these were sent to [facility]. Departure Forms: Customer Survey General Discharge Information Prescriptions: Current Visit Scripts Hydromorphone HCl (Dilaudid) 1 TAB PO BIDP PRN pain #10 TAB Ondansetron (Zofran Odt) 1 TAB SL TID PRN nausea #10 TAB (DERECK CHAN) PA/LOAN EXPEDITOR Co-Sign Statement Statement: ED Attending supervision documentation- [] I saw and evaluated the patient. I have also reviewed all the pertinent lab results and diagnostic results. I agree with the findings and the plan of care as documented in the PA's/LOAN EXPEDITOR's documentation. x I have reviewed the ED Record and agree with the PA's/LOAN EXPEDITOR's documentation. [] Additions or exceptions (if any) to the PAs/LOAN EXPEDITOR's note and plan are summarized below: [] (BEN LUIS,AMANDA)
[2016-05-18 14:58] LABS: ABSOLUTE BASOPHIL COUNT 0 /CUMM (0.0-0.2); ABSOLUTE EOSINOPHIL COUNT 0.1 /CUMM (0.0-0.7); ABSOLUTE GRANULOCYTE CT 12.7 /CUMM (1.4-6.5); ABSOLUTE LYMPH COUNT 1.5 /CUMM (1.2-3.4); ABSOLUTE MONOCYTE COUNT 0.2 /CUMM (0.10-0.60); BASOPHIL % 0.3 % (0.0-2.0); EOSINOPHIL % 0.8 % (0-5); HEMATOCRIT 38.2 % (37-47); MEAN CORPUSCULAR HGB 29.4 PG (27.0-31.0); MEAN CORPUSCULAR HGB CONC 34.3 G/DL (33.0-37.0); MEAN CORPUSCULAR VOLUME 85.8 FL (81.0-99.0); MEAN PLATELET VOLUME 7.4 FL (7.4-10.4); PLATELET COUNT 329 /CUMM (130-400); RBC DISTRIBUTION WIDTH 13.1 % (11.5-14.5); RED BLOOD CELL CT 4.45 /CUMM (4.20-5.40); WHITE BLOOD CELL COUNT 14.5 /CUMM (4.8-10.8)
[2016-05-18 15:17] LABS: GRANULOCYTE % 87.6 % (42.2-75.2)
--- NOTE | 2016-05-18 16:08 | ULTRASOUND REPORT ---
EXAMINATION: US RETROPERITONEAL COMPLETE (RENAL) CLINICAL INFORMATION: Left flank pain. History of left stent. COMPARISON: CT 05/16/2016 TECHNIQUE: Real-time imaging of the kidneys and bladder. FINDINGS: RIGHT KIDNEY: 11.2 x 5.2 x 5.6 cm (SAG x AP x TRV). The kidney is normal in size, contour, and echogenicity. Renal cortical thickness is normal. No calculi or focal parenchymal lesions. No hydronephrosis. LEFT KIDNEY: 12.2 x 6.5 x 7.5 cm (SAG x AP x TRV). The kidney is normal in size, contour, and echogenicity. Renal cortical thickness is normal. No focal parenchymal lesions. Minimal hydronephrosis. The stent has been removed. There is an 8 mm calculus in the mid pole. BLADDER: Well-distended and normal. Bilateral ureteral jets are demonstrated. Prevoid bladder volume is 70.9 mL. IMPRESSION: Minimal left hydronephrosis following removal of the renal stent. An 8 mm calculus is identified in the left mid pole.
[2016-05-18] MEDS ORDERED: ZOFRAN ODT4 M1 SL (17:03)
[2016-05-18] MEDS ORDERED: DILAUDID2 M1 PO (17:03)
[2016-05-18 18:15] VITALS: BP 136/78
== END 2016-05-18 18:17 ==
LOC: ERH 14:06
PROVIDERS: Physician Assistant Medical
DX: R10.32 Left lower quadrant pain (principal)
CPT/HCPCS: 76775; 81001; 87086; 96361; 96374; 96375; 96376; J2405